=== PATIENT | female | born 1980 | race African-American/Black ===

== ENCOUNTER 2023-11-03 14:11 | Emergency (ER) | payer OTHER ==
[2023-11-03 14:28] VITALS: BP 124/74; PULSE 56; RESP 16; TEMP 98.3; BMI 27.9
[2023-11-03] MEDS ORDERED: ACETAMINOPHEN 500 MG TABLET (FP) PO ONE (16:05)
[2023-11-03] MEDS ORDERED: DIPHTH,PERTUSS(ACELL),TET 0.5 ML DISP.SYRIN IM ONE ×2 (16:06→16:15)
[2023-11-03] MEDS ORDERED: AMOX TR/POT CLAV 875MG/125MG TABLETS (FP) PO ONE (16:09)
[2023-11-03] MEDS ORDERED: AMOX TR/POT CLAV 875MG/125MG TABLETS (FP) ONE (16:14)
[2023-11-03] MEDS ORDERED: ACETAMINOPHEN 500 MG TABLET (FP) ONE (16:15)
== END 2023-11-03 16:28 | disposition home or self-care (01) ==
LOC: JERFT 14:11
PROC: 3E0234Z Introduction of Serum, Toxoid and Vaccine into Muscle, Percutaneous Approach (ICD-10-PCS; principal; 2023-11-03)
DX: S61.255A Open bite of left ring finger without damage to nail, initial encounter (principal); W54.0XXA Bitten by dog, initial encounter; Y93.89 Activity, other specified; Y92.009 Unspecified place in unspecified non-institutional (private) residence as the place of occurrence of the external cause
CPT/HCPCS: 90471; 90715; 99283-25